=== PATIENT | male | born 1940 | race Caucasian/White ===

== ENCOUNTER 2019-01-26 14:37 | Outpatient (REF) | payer MEDICARE, SELFPAY ==
[2019-01-26 21:08] LABS: Anion Gap 9.4 mmol/L (3-11); BUN 16 mg/dL (7-18); CO2 28.6 mmol/L (21.0-32.0); Calcium 9.5 mg/dL (8.5-10.1); Chloride 99 mmol/L (98-107); Glucose 122 mg/dL (70-100); Potassium 5.2 mmol/L (3.5-5.1); Sodium 137 mmol/L (136-145)
== END 2019-01-26 14:57 ==
LOC: NCHCN 14:37
PROVIDERS: PCP Internal Medicine; Visit Provider Internal Medicine
DX: I25.10 Atherosclerotic heart disease of native coronary artery without angina pectoris (principal); I10 Essential (primary) hypertension; E74.39 Other disorders of intestinal carbohydrate absorption
CPT/HCPCS: 80048

== ENCOUNTER 2019-12-22 11:27 | Outpatient (REF) | payer MEDICARE, SELFPAY ==
[2019-12-22 22:25] LABS: Hemoglobin A1C 6.6 % (3.8-5.6)
[2019-12-22 22:31] LABS: ALT 20 U/L (16-63); AST 16 U/L (15-37); Albumin 3.3 g/dL (3.4-5.0); Alkaline Phosphatase 104 U/L (46-116); Anion Gap 9.2 mmol/L (3-11); BUN 14 mg/dL (7-18); Bilirubin, Total 0.7 mg/dL (0.2-1.0); CO2 28.8 mmol/L (21.0-32.0); Calcium 8.9 mg/dL (8.5-10.1); Calculated LDL 58 mg/dL (<100); Chloride 99 mmol/L (98-107); Cholesterol 125 mg/dL (<200); Glucose 138 mg/dL (74-106); HDL Cholesterol 61 mg/dL (40-60); Potassium 4.7 mmol/L (3.5-5.1); Sodium 137 mmol/L (136-145); Triglyceride 34 mg/dL (<150)
== END 2019-12-22 11:47 ==
LOC: NCHCN 11:27
PROVIDERS: PCP Internal Medicine; Visit Provider Internal Medicine
DX: I10 Essential (primary) hypertension (principal); R73.09 Other abnormal glucose
CPT/HCPCS: 80053; 80061; 83036

== ENCOUNTER 2020-08-17 18:18 | Outpatient (REF) | payer MEDICARE, SELFPAY ==
[2020-08-20 18:29] LABS: Patient Race White; SARS-CoV-2 RNA Undetected (Undetected); SARS-CoV-2 Specimen Source Nasal
== END 2020-08-17 18:38 ==
LOC: NCHCN 18:18
PROVIDERS: PCP Internal Medicine; Visit Provider Nurse Practitioner Community Health
DX: R05 Cough (principal)
CPT/HCPCS: U0003

== ENCOUNTER 2020-09-09 12:24 | Outpatient (REF) | payer MEDICARE, SELFPAY ==
[2020-09-09 21:00] LABS: Abs Immature Grans 0.17 10^3/uL (0.0-0.06); Absolute Monocyte Count 1.26 10^3/uL (0.1-0.8); Basophils % 0.1; Eosinophils % 0.1; HCT 25.4 % (40.0-50.0); HGB 7.4 g/dL (13.5-17.5); Lymphocytes % 9.4; MCH 23.6 pg (27.0-33.0); MCHC 29.1 % (32.0-36.0); MCV 80.9 fL (80-95); MPV 10.4 fL (8.0-11.0); Monocytes % 7.3; Neutrophils % 82.1; Nucleated RBC 0 %; Platelet Count 438 10^3/uL (130-400); RBC 3.14 10^6/uL (4.36-5.78); RDW 16.5 % (11.8-14.1); RDW-SD 47.7 fL; WBC 17.31 10^3/uL (4.4-10.8)
[2020-09-09 21:08] LABS: Absolute Basophil Count 0.02 10^3/uL (0.0-0.2); Absolute Eosinophil Count 0.02 10^3/uL (0.0-0.7); Absolute Lymphocyte Count 1.63 10^3/uL (1.2-3.4); Absolute Neutrophil Count 14.21 10^3/uL (1.2-6.7)
[2020-09-09 21:12] LABS: ALT 58 U/L (16-63); AST 46 U/L (15-37); Albumin 2.3 g/dL (3.4-5.0); Alkaline Phosphatase 235 U/L (46-116); Anion Gap 13.4 mmol/L (3-11); BUN 39 mg/dL (7-18); Bilirubin, Total 0.5 mg/dL (0.2-1.0); CO2 23.6 mmol/L (21.0-32.0); CREATININE 1.33 mg/dL (0.70-1.30); Calcium 8.7 mg/dL (8.5-10.1); Chloride 99 mmol/L (98-107); Estimated GFR 51.87 (mL/min/1.73m2); Glucose 117 mg/dL (74-106); Potassium 4.4 mmol/L (3.5-5.1); Sodium 136 mmol/L (136-145); Total Protein 6.6 g/dL (6.4-8.2)
[2020-09-09 22:07] LABS: Anisocytosis 1+; Diff Comment Diff Reviewed; Hypochromasia 1+; Microcytosis 1+
== END 2020-09-09 12:44 ==
LOC: NCHCN 12:24
PROVIDERS: PCP Internal Medicine; Visit Provider Internal Medicine
DX: R09.02 Hypoxemia (principal)
CPT/HCPCS: 80053; 85025

== ENCOUNTER 2020-09-16 13:52 | Outpatient (REF) | payer MEDICARE, SELFPAY ==
[2020-09-21 02:01] LABS: SARS-CoV-2 RNA Undetected (Undetected); SARS-CoV-2 Specimen Source Nasal
== END 2020-09-16 14:12 ==
LOC: NCHCN 13:52
PROVIDERS: PCP Internal Medicine; Visit Provider Internal Medicine
DX: Z20.828 Contact with and (suspected) exposure to other viral communicable diseases (principal)
CPT/HCPCS: U0003

== ENCOUNTER 2020-09-23 22:24 | Outpatient (REF) | payer MEDICARE, SELFPAY ==
[2020-09-23 21:26] LABS: Abs Immature Grans 0.09 10^3/uL (0.0-0.06); Absolute Basophil Count 0.06 10^3/uL (0.0-0.2); Absolute Eosinophil Count 0.38 10^3/uL (0.0-0.7); Absolute Lymphocyte Count 1.05 10^3/uL (1.2-3.4); Absolute Monocyte Count 0.81 10^3/uL (0.1-0.8); Basophils % 0.5; Eosinophils % 3.4; HCT 28.3 % (40.0-50.0); HGB 8.6 g/dL (13.5-17.5); Immature Grans % 0.8; Lymphocytes % 9.5; MCH 25.4 pg (27.0-33.0); MCHC 30.4 % (32.0-36.0); MCV 83.5 fL (80-95); MPV 9.9 fL (8.0-11.0); Monocytes % 7.3; Neutrophils % 78.5; Nucleated RBC 0 %; Platelet Count 308 10^3/uL (130-400); RBC 3.39 10^6/uL (4.36-5.78); RDW 17.7 % (11.8-14.1); RDW-SD 53.8 fL; WBC 11.03 10^3/uL (4.4-10.8)
[2020-09-23 21:29] LABS: Absolute Neutrophil Count 8.66 10^3/uL (1.2-6.7)
[2020-09-23 21:43] LABS: Anisocytosis 2+; Hypochromasia 2+; Microcytosis 2+; Poikilocytes 1+; Polychromasia Present
[2020-09-23 21:57] LABS: ALT 22 U/L (16-63); AST 26 U/L (15-37); Albumin 1.9 g/dL (3.4-5.0); Alkaline Phosphatase 232 U/L (46-116); Anion Gap 9.4 mmol/L (3-11); BUN 19 mg/dL (7-18); Bilirubin, Total 0.8 mg/dL (0.2-1.0); CO2 24.6 mmol/L (21.0-32.0); CREATININE 0.88 mg/dL (0.70-1.30); Calcium 8.3 mg/dL (8.5-10.1); Chloride 95 mmol/L (98-107); Glucose 136 mg/dL (74-106); Potassium 4.2 mmol/L (3.5-5.1); Sodium 129 mmol/L (136-145)
== END 2020-09-23 22:44 ==
LOC: NCHCN 22:24
PROVIDERS: PCP Internal Medicine; Visit Provider Internal Medicine
DX: D50.9 Iron deficiency anemia, unspecified (principal); J84.10 Pulmonary fibrosis, unspecified; J84.9 Interstitial pulmonary disease, unspecified
CPT/HCPCS: 80053; 85025

== ENCOUNTER 2020-09-30 21:17 | Outpatient (REF) | payer MEDICARE, SELFPAY ==
[2020-09-30 21:11] LABS: HCT 28.8 % (40.0-50.0); MCH 25.5 pg (27.0-33.0); MCHC 31.3 % (32.0-36.0); MCV 81.6 fL (80-95); MPV 10.2 fL (8.0-11.0); Platelet Count 442 10^3/uL (130-400); RBC 3.53 10^6/uL (4.36-5.78); RDW 18.3 % (11.8-14.1); RDW-SD 54.3 fL; WBC 12.09 10^3/uL (4.4-10.8)
[2020-09-30 21:59] LABS: ALT 28 U/L (16-63); AST 36 U/L (15-37); Alkaline Phosphatase 280 U/L (46-116); Anion Gap 8.3 mmol/L (3-11); BUN 19 mg/dL (7-18); Bilirubin, Total 0.8 mg/dL (0.2-1.0); CO2 26.7 mmol/L (21.0-32.0); CREATININE 1.14 mg/dL (0.70-1.30); Calcium 8.8 mg/dL (8.5-10.1); Chloride 95 mmol/L (98-107); Glucose 259 mg/dL (74-106); Potassium 4.2 mmol/L (3.5-5.1); Sodium 130 mmol/L (136-145); Total Protein 6.2 g/dL (6.4-8.2)
[2020-10-03 10:06] LABS: PSA, Diagnostic 1.1 ng/mL (0.0-6.5)
[2020-10-03 13:32] LABS: Albumin 35.4 % (55.8-66.1); Comment (See Note); Total Protein 5.7 g/dL (6.3-8.2)
== END 2020-09-30 21:37 ==
LOC: NCHCN 21:17
PROVIDERS: PCP Internal Medicine; Visit Provider Nurse Practitioner Family
DX: R09.02 Hypoxemia (principal); I10 Essential (primary) hypertension; R59.0 Localized enlarged lymph nodes; R94.5 Abnormal results of liver function studies; R93.7 Abnormal findings on diagnostic imaging of other parts of musculoskeletal system
CPT/HCPCS: 80053; 85027; 84153; 84165; 86320